=== PATIENT | male | born 1990 | race Caucasian/White ===

== ENCOUNTER 2017-12-21 05:36 | Emergency (ER) | payer OTHER ==
[2017-12-21] MEDS: TETRACAINE 0.5% 4 ML OPH LEFT EYE (07:51)
[2017-12-21] MEDS: FLUORESCEIN STRIP LEFT EYE (07:51)
== END 2017-12-21 08:04 | disposition home or self-care (01) ==
LOC: FTE 05:36
DX: S05.92XA Unspecified injury of left eye and orbit, initial encounter (principal); X58.XXXA Exposure to other specified factors, initial encounter; Y92.9 Unspecified place or not applicable
CPT/HCPCS: 99283; Z7502